=== PATIENT | male | born 1950 | race Caucasian/White ===

== ENCOUNTER → 2017-08-24 | Outpatient (CLI) | payer MEDICARE, OTHER ==
[~2017-08-24] MED LIST: CEPH-13 PO; PER PO; TAMS0.4C70 PO; [UNRECOGNIZED DRUG - REMARK] PO
--- NOTE | 2017-08-24 16:39 | RADIOLOGY IMAGING REPORT ---
FACILITY: [facility] PATIENT NAME: Ronni Hussein : 1950 MR: [id number] V: [id number] EXAM DATE: ORDERING PHYSICIAN: DONAL AMIN TECHNOLOGIST: Location: [facility] Patient: Ronni Hussein : 1950 Visit/Account:[id number] Date of Sevice: 08/24/2017 Left knee, 4 views. HISTORY: Left knee pain, medial laceration. COMPARISON: None. Mild soft tissue swelling is present in the medial compartment. The lateral compartment is unremarkab le. Small marginal osteophytes without joint space narrowing are present in the patellofemoral compar tment. The suprapatellar bursa may be slightly distended. No acute fractures. No focal bony destructi on. No abnormal soft tissue gas is identified. IMPRESSION: Minimal osteoarthritis. Small joint effusion. Report Dictated By: Sylvester Casillas MD at 08/24/2017 4:32 PM Report E-Signed By: Sylvester Casillas MD at 08/24/2017 4:34 PM [id number]
== END ==
LOC: RAD 15:52
PROVIDERS: ATTEND Nurse Practitioner Family
DX: M17.12 Unilateral primary osteoarthritis, left knee (principal); M25.462 Effusion, left knee
CPT/HCPCS: 73564

== ENCOUNTER → 2018-05-25 | Day surgery (SDC) | payer MEDICARE, OTHER ==
[~2018-05-25] VITALS: Ht 185.4 cm; Wt 78.0 kg
[~2018-05-25] MED LIST changes: +LIDOCAINE/SOD BICARB 8.4% SYR ID ONE; +NORMOSOL R SOLN(*) 1000 ML BAG 1,000 ML IV PRN; +PROPOFOL EMUL(*) 10MG/ML 20 ML 20 ML ONE; +[UNRECOGNIZED DRUG - CODE] PO
[2018-05-25 07:20] VITALS: BP 112/71
[2018-05-25 09:49] VITALS: BP 131/87
--- NOTE | 2018-05-25 09:54 | Short(Outpt) Discharge Summary ---
Discharge Summary Reason for Hosp/Final Diag: (1) Colon cancer screening Status: Chronic Hospital Course & Plan: Colonoscopy completed without problems, normal. Departure Discharge to: Home, Self Care Discharge Instructions Home Meds Reported Medications Tadalafil (ADCIRCA) Unknown Strength Tablet, 5 MG PO QDAY, TAB 04/13/18 Tamsulosin Hcl (TAMSULOSIN HCL) 0.4 Mg Cap.er.24h, 0.4 MG PO QDAY 01/14/15 Diet: Regular Activity: As Tolerated Special Instructions: Your colonoscopy was completed without problems and your prep was excellent (Good Job!!). I didn't find any cancer, polyps, or other problems; your colonoscopy was completely normal. I recommend that you have another colonoscopy in 10 years. EVI HUGO MD May 25, 2018 09:54
[2018-05-25 10:00] VITALS: BP 120/85
[2018-05-25 10:31] VITALS: BP 122/73
[2018-05-25 10:32] VITALS: BP 112/83
== END ==
LOC: OR 00:13
PROVIDERS: ATTEND Surgery
DX: Z12.11 Encounter for screening for malignant neoplasm of colon (principal)
CPT/HCPCS: 00812; G0121; J2704